=== PATIENT | female | born 1960 | race Caucasian/White ===

== ENCOUNTER 2020-11-25 18:35 | Emergency (ER) | payer OTHER ==
[~2020-11-25] VITALS: Wt 74.8 kg
[~2020-11-25 18:35] MED LIST: ATIVAN2 M1 PO; LEXAPRO5 M1 PO; LISINOPRIL AND1 TA2 PO; LOPRESSOR100 M1 PO; PERCOCET 325 MG1 TAB PO; SIMVASTATIN40 MG PO
[2020-11-25 18:58] LABS: BASO # 0.1 10*3/uL (0.0-0.1); BASO % 0.7 % (0.0-1.0); EOS # 0.3 10*3/uL (0.0-0.4); EOS % 3.3 % (1.0-4.0); HEMATOCRIT 40.3 % (37.0-47.0); LYMPH # 1.9 10*3/uL (1.3-4.4); LYMPH % 24.5 % (27.0-41.0); MEAN CELL VOLUME 86.7 fl (81.0-99.0); MEAN CORPUSCULAR HGB CONC 32.3 g/dl (33.0-37.0); MEAN PLATELET VOLUME 9.4 fl (9.6-12.3); MONO # 0.7 10*3/uL (0.1-1.0); MONO % 9.8 % (3.0-9.0); NEUT # 4.6 10*3/uL (2.3-7.9); NEUT % 61.4 % (47.0-73.0); PLATELET COUNT AUTOMATED 358 10*3/uL (130-400); RED BLOOD COUNT 4.65 10*6/uL (4.10-5.10); RED CELL DISTRI WIDTH 15.8 % (0-14.5); WHITE BLOOD COUNT 7.5 10*3/uL (4.8-10.8)
[2020-11-25 19:09] LABS: ACT PARTIAL THROMBO TIME 29.4 SECONDS (20.0-32.1); INTERNATIONAL NORM RATIO 1.1 (2.0-3.5)
[2020-11-25 19:13] LABS: ALBUMIN 3.7 gm/dl (3.1-4.5); ALKALINE PHOSPHATASE 70 U/L (45-117); BUN 9 mg/dl (7-24); CHLORIDE 104 mmol/L (98-107); CREATININE 0.68 mg/dL (0.55-1.02); POTASSIUM 3.3 mmol/L (3.5-5.1); SGOT/AST 33 IU/L (3-35); SGPT/ALT 32 U/L (12-78); SODIUM 139 mmol/L (136-145); TOTAL PROTEIN 7.7 gm/dL (6.4-8.2)
[2020-11-25 19:16] LABS: ETHYL ALCOHOL < 3.0 mg/dl (<3)
[2020-11-25 19:32] LABS: CPK 313 U/L (26-192); TROPONIN I < 0.015 ng/ml (<0.045)
[2020-11-25 21:09] LABS: BILIRUBIN Negative (Negative); BLOOD Trace-Lysed (Negative); CLARITY Clear (Clear); COLOR Yellow (Yellow); GLUCOSE Negative (Negative); KETONE Negative (Negative); LEUKO ESTERASE Trace (Negative); NITRITE Negative (Negative); SPECIFIC GRAVITY <= 1.005 (1.001-1.030); UROBILINOGEN 0.2 E.U./dl (0.0-1.0)
[2020-11-25 21:19] LABS: BACTERIA TRACE
[2020-11-25 21:22] LABS: URINE AMPHETAMINES > 1000 (1000ng/ml); URINE BARBITURATES < 200 (200ng/ml); URINE BENZODIAZEPINES < 200 (200ng/ml); URINE CANNABINOIDS (THC) < 50 (50ng/ml); URINE COCAINE < 300 (300ng/ml); URINE METHADONE < 300 (300ng/ml); URINE OPIATES < 300 (300ng/ml)
[2020-11-25 21:29] LABS: URINE PHENCYCLIDINE < 25 (25ng/ml)
== END 2020-11-26 02:43 | disposition home health service (06) ==
LOC: ED 18:35
PROVIDERS: Emergency Medicine
DX: F29 Unspecified psychosis not due to a substance or known physiological condition (principal); F45.8 Other somatoform disorders; F22 Delusional disorders; F15.10 Other stimulant abuse, uncomplicated; E87.6 Hypokalemia; Z79.899 Other long term (current) drug therapy; Z90.49 Acquired absence of other specified parts of digestive tract; Z20.828 Contact with and (suspected) exposure to other viral communicable diseases

== ENCOUNTER 2021-07-22 11:19 | Inpatient (IN) | payer OTHER ==
[~2021-07-22] VITALS: Ht 162.5 cm; Wt 52.2 kg
[2021-07-22 11:30] VITALS: BP 141/84
[2021-07-22 13:52] LABS: BASO # 0.1 10*3/uL (0.0-0.1); BASO % 0.8 % (0.0-1.0); EOS # 0.4 10*3/uL (0.0-0.4); HEMATOCRIT 40.2 % (37.0-47.0); LYMPH # 2.7 10*3/uL (1.3-4.4); LYMPH % 38.1 % (27.0-41.0); MEAN CELL VOLUME 89.3 fl (81.0-99.0); MEAN CORPUSCULAR HGB 29.3 pg (27.0-31.0); MEAN CORPUSCULAR HGB CONC 32.8 g/dl (33.0-37.0); MEAN PLATELET VOLUME 9.2 fl (9.6-12.3); MONO # 0.7 10*3/uL (0.1-1.0); MONO % 10.2 % (3.0-9.0); NEUT # 3.3 10*3/uL (2.3-7.9); NEUT % 45.5 % (47.0-73.0); PLATELET COUNT AUTOMATED 344 10*3/uL (130-400); RED CELL DISTRI WIDTH 13.7 % (0-14.5); WHITE BLOOD COUNT 7.2 10*3/uL (4.8-10.8)
[2021-07-22 14:07] LABS: ALBUMIN 3.7 gm/dl (3.1-4.5); ALKALINE PHOSPHATASE 86 U/L (45-117); BUN 16 mg/dl (7-24); CHLORIDE 105 mmol/L (98-107); CREATININE 0.67 mg/dL (0.55-1.02); POTASSIUM 3.8 mmol/L (3.5-5.1); SGOT/AST 21 IU/L (3-35); SGPT/ALT 29 U/L (12-78); SODIUM 138 mmol/L (136-145); TOTAL PROTEIN 7.8 gm/dL (6.4-8.2)
[2021-07-22 14:11] LABS: ETHYL ALCOHOL < 3.0 mg/dl (<3)
[2021-07-22 16:02] LABS: BILIRUBIN Negative (Negative); BLOOD Negative (Negative); CLARITY Clear (Clear); COLOR Yellow (Yellow); GLUCOSE Negative (Negative); KETONE Negative (Negative); LEUKO ESTERASE 2+ (Negative); NITRITE Negative (Negative); PH 7.5 (4.5-8.0); SPECIFIC GRAVITY <= 1.005 (1.001-1.030); UROBILINOGEN 0.2 E.U./dl (0.0-1.0)
[2021-07-22 16:15] LABS: RBC 0-2 rbc/hpf (0-2)
[2021-07-22 16:16] LABS: BACTERIA 1+
[2021-07-22 16:16] LABS: URINE AMPHETAMINES > 1000 (1000ng/ml); URINE BARBITURATES < 200 (200ng/ml); URINE BENZODIAZEPINES < 200 (200ng/ml); URINE CANNABINOIDS (THC) > 50 (50ng/ml); URINE COCAINE < 300 (300ng/ml); URINE METHADONE < 300 (300ng/ml); URINE OPIATES > 300 (300ng/ml)
[2021-07-22 16:18] LABS: URINE PHENCYCLIDINE < 25 (25ng/ml)
[2021-07-22 19:30] VITALS: BP 143/89
[2021-07-22] MEDS ORDERED: COLESTIPOL HYDRO1 GM PO (22:03)
[2021-07-22] MEDS ORDERED: HYDROXYZINE PAM25 M1 PO (22:03)
[2021-07-22] MEDS ORDERED: FAMOTIDINE20 M1 PO (22:04)
[2021-07-22] MEDS ORDERED: PANTOPRAZOLE SO40 MG PO (22:05)
[2021-07-22] MEDS ORDERED: OLANZAPINE7.5 M1 PO (22:10)
[2021-07-23 13:30] VITALS: BP 152/91
[2021-07-23 15:12] VITALS: BP 128/74
[2021-07-23 20:00] VITALS: BP 138/98
[2021-07-24 06:27] LABS: BASO % 0.5 % (0.0-1.0); EOS # 0.2 10*3/uL (0.0-0.4); EOS % 2.4 % (1.0-4.0); HEMATOCRIT 41.5 % (37.0-47.0); LYMPH # 2.4 10*3/uL (1.3-4.4); LYMPH % 29.2 % (27.0-41.0); MEAN CELL VOLUME 87.7 fl (81.0-99.0); MEAN PLATELET VOLUME 9.3 fl (9.6-12.3); MONO # 0.8 10*3/uL (0.1-1.0); MONO % 9.3 % (3.0-9.0); NEUT # 4.9 10*3/uL (2.3-7.9); NEUT % 58.4 % (47.0-73.0); PLATELET COUNT AUTOMATED 359 10*3/uL (130-400); RED BLOOD COUNT 4.73 10*6/uL (4.10-5.10); RED CELL DISTRI WIDTH 13.5 % (0-14.5); WHITE BLOOD COUNT 8.4 10*3/uL (4.8-10.8)
[2021-07-24 06:46] LABS: THYROID STIM HORMONE (HS) 2.84 uIU/ml (0.358-4.75)
[2021-07-24 07:32] VITALS: BP 131/87
[2021-07-24 08:38] LABS: VITAMIN D, 25-HYDROXY 33.6 ng/mL (30-100)
[2021-07-24] MEDS ORDERED: ATIVAN1 MG PO (10:14)
[2021-07-24] MEDS ORDERED: METOPROLOL25 MG PO (10:37)
[2021-07-24] MEDS ORDERED: NEURONTIN300 MG PO (10:40)
[2021-07-24] MEDS ORDERED: POTASSIUM CHLO10 ME4 PO (10:40)
[2021-07-24] MEDS ORDERED: PROTONIX40 MG PO (10:41)
[2021-07-24] MEDS ORDERED: CARAFATE1 G1 PO (10:41)
[2021-07-24] MEDS ORDERED: NORVASC5 MG PO (10:42)
[2021-07-24 19:53] VITALS: BP 118/83
[2021-07-25 07:45] VITALS: BP 138/84
[2021-07-25] MEDS ORDERED: PROVENTIL HFA6.7 GM IH (11:42)
[2021-07-25 20:00] VITALS: BP 133/74
[2021-07-26] MEDS ORDERED: MIRTAZAPINE15 M2 PO (06:18)
[2021-07-26] MEDS ORDERED: PALIPERIDONE ER6 MG PO (06:21)
[2021-07-26 07:51] VITALS: BP 139/84
== END 2021-07-26 12:30 | disposition home or self-care (01) | DRG 885 ==
LOC: ED 11:19 → 3N 07-23 12:48
PROVIDERS: Emergency Medicine; ADMIT Psychiatry & Neurology Psychiatry; ATTEND Psychiatry & Neurology Psychiatry
DX: F23 Brief psychotic disorder (principal); F15.20 Other stimulant dependence, uncomplicated; F41.9 Anxiety disorder, unspecified; Z20.822 Contact with and (suspected) exposure to COVID-19; F31.9 Bipolar disorder, unspecified; F11.10 Opioid abuse, uncomplicated; F12.10 Cannabis abuse, uncomplicated; E78.5 Hyperlipidemia, unspecified; Z90.49 Acquired absence of other specified parts of digestive tract; Z98.891 History of uterine scar from previous surgery; Z82.49 Family history of ischemic heart disease and other diseases of the circulatory system; Z79.899 Other long term (current) drug therapy

== ENCOUNTER 2025-10-04 16:28 | Inpatient (IN) | payer OTHER ==
[~2025-10-04] VITALS: Ht 157.5 cm; Wt 60.1 kg
[~2025-10-04 16:28] MED LIST changes: +ATIVAN1 MG PO; +CARAFATE1 G1 PO; +COLESTIPOL HYDRO1 GM PO; +FAMOTIDINE20 M1 PO; +HYDROXYZINE PAM25 M1 PO; +METOPROLOL25 MG PO; +MIRTAZAPINE15 M2 PO; +NEURONTIN300 MG PO; +NORVASC5 MG PO; +OLANZAPINE7.5 M1 PO; +PALIPERIDONE ER6 MG PO; +PANTOPRAZOLE SO40 MG PO; +POTASSIUM CHLO10 ME4 PO; +PROTONIX40 MG PO; +PROVENTIL HFA6.7 GM IH
[2025-10-04 16:53] LABS: MANUAL DIFF REFLEX YES; MEAN CELL VOLUME 85.6 fl (81.0-99.0); MEAN CORPUSCULAR HGB 29.2 pg (27.0-31.0); MEAN PLATELET VOLUME 9.3 fl (9.6-12.3); NUCLEATED RED BLOOD CELL 0.0 % (0.0-0.0); NUCLEATED RED BLOOD CELL 0.0 10*3/uL (0.0-0.0); PLATELET COUNT AUTOMATED 387 10*3/uL (130-400); RED CELL DISTRI WIDTH 15.4 % (0-14.5)
[2025-10-04 16:57] VITALS: BP 152/85
[2025-10-04 17:14] LABS: PLATELET SUFFICIENCY NORMAL (NORMAL)
[2025-10-04] MEDS ORDERED: SODIUM CHLORIDE 0.9% 500 ML IV ONE (17:15)
[2025-10-04] MEDS ORDERED: IOHEXOL 350 MG/ML 100 ML VIAL IV ONE (17:15)
[2025-10-04] MEDS ORDERED: SODIUM CHLORIDE 0.9% 100 ML BAG IV ONE (17:15)
[2025-10-04 17:18] LABS: BUN 18 mg/dl (9-23); SGPT/ALT 14 U/L (5-49)
[2025-10-04] MEDS ORDERED: OXYCODONE HCL5 MG PO (18:08)
[2025-10-04] MEDS ORDERED: MONTELUKAST SOD10 MG PO (18:08)
[2025-10-04] MEDS ORDERED: HYDROXYZINE HCL25 MG PO (18:09)
[2025-10-04] MEDS ORDERED: DICYCLOMINE HYD10 MG PO (18:10)
[2025-10-04] MEDS ORDERED: CYCLOBENZAPRINE10 MG PO (18:10)
[2025-10-04] MEDS ORDERED: HEARTBURN RELIE20 MG PO (18:11)
[2025-10-04] MEDS ORDERED: CETIRIZINE10 MG PO (18:11)
[2025-10-04] MEDS ORDERED: OMEPRAZOLE40 MG PO (18:12)
[2025-10-04] MEDS ORDERED: LYRICA150 M1 PO (18:12)
[2025-10-04] MEDS ORDERED: Acetaminophen/Hydrocodone 5 MG/325 MG TABLET PO PRN (20:00)
[2025-10-04] MEDS ORDERED: BISACODYL 5 MG TAB PO PRN (20:00)
[2025-10-04] MEDS ORDERED: ACETAMINOPHEN 325 MG TAB PO PRN (20:00)
[2025-10-04] MEDS ORDERED: Ondansetron Hydrochloride 4 MG/2 ML VIAL IV PRN (20:00)
[2025-10-04] MEDS ORDERED: Albuterol Sulf/Ipratropium 3 ML VIAL NEB PRN (20:10)
[2025-10-04 20:13] VITALS: BP 140/79
[2025-10-04] MEDS ORDERED: Potassium Bicarbonate/Potass 25 MEQ TAB PO ONE (20:15)
[2025-10-04] MEDS ORDERED: SODIUM CHLORIDE 0.9% 1,000 ML IV SCH (20:20)
[2025-10-04 20:55] VITALS: BP 154/84
[2025-10-04] MEDS ORDERED: Vancomycin Hydrochloride 1,000 MG in SODIUM CHLORIDE 0.9% 250 ML IV SCH (21:00)
[2025-10-04] MEDS ORDERED: GUAIFENESIN 600 MG TAB ER PO SCH (22:00)
[2025-10-05] VITALS: BP 156/85
[2025-10-05 00:48] LABS: BILIRUBIN Negative (Negative); BLOOD Negative (Negative); CLARITY Clear (Clear); COLOR Yellow (Yellow); KETONE 2+ (Negative); LEUKO ESTERASE Trace (Negative); NITRITE Negative (Negative); PH 5.5 (4.5-8.0); SPECIFIC GRAVITY 1.010 (1.001-1.030); UROBILINOGEN 0.2 E.U./dl (0.0-1.0)
[2025-10-05] MEDS ORDERED: LORazepam 1 MG TAB PO ONE (00:50)
[2025-10-05 00:53] LABS: URINE AMPHETAMINES Negative (1000ng/ml); URINE BARBITURATES Negative (200ng/ml); URINE BENZODIAZEPINES Negative (200ng/ml); URINE CANNABINOIDS (THC) Negative (50ng/ml); URINE COCAINE Negative (300ng/ml); URINE METHADONE Negative (300ng/ml); URINE OPIATES Negative (300ng/ml); URINE PHENCYCLIDINE Negative (25ng/ml)
[2025-10-05] MEDS ORDERED: Dicyclomine Hydrochloride 10 MG CAP PO PRN (05:25)
[2025-10-05 06:06] LABS: BASO # 0.0 10*3/uL (0.0-0.1); BASO % 0.1 % (0.0-1.0); EOS # 0.0 10*3/uL (0.0-0.4); EOS % 0.0 % (1.0-4.0); MEAN CELL VOLUME 85.7 fl (81.0-99.0); MEAN CORPUSCULAR HGB 28.6 pg (27.0-31.0); MEAN PLATELET VOLUME 9.3 fl (9.6-12.3); MONO # 0.8 10*3/uL (0.1-1.0); MONO % 5.7 % (3.0-9.0); NEUT # 12.8 10*3/uL (2.3-7.9); NEUT % 88.3 % (47.0-73.0); NUCLEATED RED BLOOD CELL 0.0 % (0.0-0.0); NUCLEATED RED BLOOD CELL 0.0 10*3/uL (0.0-0.0); PLATELET COUNT AUTOMATED 408 10*3/uL (130-400); RED CELL DISTRI WIDTH 15.7 % (0-14.5)
[2025-10-05 06:18] LABS: ACT PARTIAL THROMBO TIME 29.6 SECONDS (20.0-32.1)
[2025-10-05 06:41] LABS: BUN 11 mg/dl (9-23); FREE T4 1.18 ng/dl (0.89-1.76); LDL CHOLESTEROL 90 mg/dL (9-159); SGPT/ALT 17 U/L (5-49)
[2025-10-05 07:34] LABS: VITAMIN D, 25-HYDROXY 20.8 ng/mL (30-100)
[2025-10-05] MEDS ORDERED: POTASSIUM CHLORIDE 20 MEQ TAB PO ONE (07:35)
[2025-10-05 08:00] VITALS: BP 128/75
[2025-10-05] MEDS ORDERED: SUCRALFATE 1 GM TAB PO SCH (10:00)
[2025-10-05] MEDS ORDERED: PREGABALIN 75 MG CAP PO SCH (10:00)
[2025-10-05] MEDS ORDERED: Cyclobenzaprine Hydrochlorid 10 MG TAB PO SCH (10:00)
[2025-10-05] MEDS ORDERED: POTASSIUM CHLORIDE 10 MEQ TAB PO SCH ×2 (10:00→18:00)
[2025-10-05] MEDS ORDERED: GABAPENTIN 300 MG CAP PO SCH (10:00)
[2025-10-05 11:29] VITALS: BP 131/71
[2025-10-05 16:00] VITALS: BP 116/90
[2025-10-05 20:00] VITALS: BP 137/85
[2025-10-05] MEDS ORDERED: Cyclobenzaprine Hydrochlorid 10 MG TAB PO PRN (20:14)
[2025-10-05] MEDS ORDERED: HYDROCODONE-AC1 EAC1 PO (20:17)
[2025-10-05] MEDS ORDERED: PREGABALIN150 MG PO (20:21)
[2025-10-05] MEDS ORDERED: VARENICLINE TART1 MG PO (20:22)
[2025-10-05] MEDS ORDERED: Paliperidone 3 MG TER PO SCH (21:00)
[2025-10-05] MEDS ORDERED: Colestipol Hydrochloride 1 GM TAB PO SCH (21:00)
[2025-10-05] MEDS ORDERED: Mirtazapine 15 MG TAB PO SCH (21:00)
[2025-10-05] MEDS ORDERED: SIMVASTATIN 20 MG TAB PO SCH (22:00)
[2025-10-05] MEDS ORDERED: AMLODIPINE BESYL5 MG PO (23:21)
[2025-10-05] MEDS ORDERED: Ventolin 02.5 MG/3 M INH (23:21)
[2025-10-05] MEDS ORDERED: GABAPENTIN600 MG PO (23:22)
[2025-10-05] MEDS ORDERED: Lopressor25 MG PO (23:33)
[2025-10-05] MEDS ORDERED: Carafate1 GM PO (23:34)
[2025-10-05] MEDS ORDERED: POTASSIUM CHLO10 ME5 PO (23:35)
[2025-10-05] MEDS ORDERED: PANTOPRAZOLE SO40 MG PO (23:35)
[2025-10-05] MEDS ORDERED: CETIRIZINE HYDR10 MG PO (23:35)
[2025-10-06] VITALS: BP 135/79
[2025-10-06] MEDS ORDERED: Dicyclomine Hydrochloride 10 MG CAP PO PRN (00:07)
[2025-10-06] MEDS ORDERED: CALCIUM (TUMS) 500MG PO ONE (00:35)
[2025-10-06] MEDS ORDERED: LORazepam 1 MG TAB PO ONE (04:20)
[2025-10-06 08:00] VITALS: BP 115/97
[2025-10-06 08:57] LABS: BASO # 0.0 10*3/uL (0.0-0.1); BASO % 0.2 % (0.0-1.0); EOS # 0.1 10*3/uL (0.0-0.4); EOS % 0.4 % (1.0-4.0); MEAN CELL VOLUME 86.4 fl (81.0-99.0); MEAN CORPUSCULAR HGB 29.0 pg (27.0-31.0); MEAN PLATELET VOLUME 9.5 fl (9.6-12.3); MONO # 1.3 10*3/uL (0.1-1.0); MONO % 6.7 % (3.0-9.0); NEUT # 15.2 10*3/uL (2.3-7.9); NEUT % 80.8 % (47.0-73.0); NUCLEATED RED BLOOD CELL 0.0 % (0.0-0.0); NUCLEATED RED BLOOD CELL 0.0 10*3/uL (0.0-0.0); PLATELET COUNT AUTOMATED 475 10*3/uL (130-400); RED CELL DISTRI WIDTH 16.3 % (0-14.5)
[2025-10-06 09:31] LABS: SGPT/ALT 35 U/L (5-49)
[2025-10-06 09:42] LABS: BUN 26 mg/dl (9-23)
[2025-10-06] MEDS ORDERED: GABAPENTIN 300 MG CAP PO SCH (10:00)
[2025-10-06] MEDS ORDERED: Cholecalciferol 2,000 UNIT TABLET (50 MCG) PO SCH (10:00)
[2025-10-06] MEDS ORDERED: Colestipol Hydrochloride 1 GM TAB PO SCH (10:00)
[2025-10-06] MEDS ORDERED: POTASSIUM CHLORIDE 20 MEQ TAB PO ONE (11:05)
[2025-10-06] MEDS ORDERED: Cyclobenzaprine Hydrochlorid 10 MG TAB PO PRN (11:40)
[2025-10-06 12:00] VITALS: BP 135/73
[2025-10-06] MEDS ORDERED: AZITHROMYCIN 500 MG in SODIUM CHLORIDE 0.9% 250 ML IV SCH (13:00)
[2025-10-06] MEDS ORDERED: diazePAM 10 MG/2 ML SYR IV ONE (13:40)
[2025-10-06 14:07] LABS: MYCOPLASMA PNEUMONIAE IGG 126 U/mL (0-99); MYCOPLASMA PNEUMONIAE IGM <770 U/mL (0-769)
[2025-10-06 16:00] VITALS: BP 145/60
[2025-10-06] MEDS ORDERED: Albuterol Sulf/Ipratropium 3 ML VIAL NEB SCH (16:16)
[2025-10-06] MEDS ORDERED: SUCRALFATE 1 GM TAB PO SCH (16:30)
[2025-10-06 20:00] VITALS: BP 139/100
[2025-10-06] MEDS ORDERED: Paliperidone 3 MG TER PO SCH (21:00)
[2025-10-06] MEDS ORDERED: Dicyclomine Hydrochloride 10 MG CAP PO SCH (22:00)
[2025-10-06] MEDS ORDERED: GABAPENTIN 600 MG TAB PO SCH (22:00)
[2025-10-07] VITALS: BP 140/105
[2025-10-07 06:15] LABS: BASO # 0.0 10*3/uL (0.0-0.1); BASO % 0.1 % (0.0-1.0); EOS # 0.5 10*3/uL (0.0-0.4); EOS % 3.6 % (1.0-4.0); MEAN CELL VOLUME 86.5 fl (81.0-99.0); MEAN CORPUSCULAR HGB 28.6 pg (27.0-31.0); MEAN PLATELET VOLUME 9.3 fl (9.6-12.3); MONO # 0.8 10*3/uL (0.1-1.0); MONO % 6.1 % (3.0-9.0); NEUT # 9.1 10*3/uL (2.3-7.9); NEUT % 69.3 % (47.0-73.0); NUCLEATED RED BLOOD CELL 0.0 % (0.0-0.0); NUCLEATED RED BLOOD CELL 0.0 10*3/uL (0.0-0.0); PLATELET COUNT AUTOMATED 459 10*3/uL (130-400); RED CELL DISTRI WIDTH 16.6 % (0-14.5)
[2025-10-07 06:48] LABS: BUN 13 mg/dl (9-23)
[2025-10-07] MEDS ORDERED: POTASSIUM CHLORIDE 20 MEQ TAB PO ONE (07:10)
[2025-10-07 08:00] VITALS: BP 151/81
[2025-10-07] MEDS ORDERED: FAMOTIDINE 20 MG TAB PO SCH (10:00)
[2025-10-07] MEDS ORDERED: Colestipol Hydrochloride 1 GM TAB PO SCH (10:00)
[2025-10-07 12:00] VITALS: BP 156/79
[2025-10-07] MEDS ORDERED: POTASSIUM CHLORIDE 20 MEQ TAB PO SCH (12:00)
[2025-10-07] MEDS ORDERED: diazePAM 10 MG/2 ML SYR IV PRN (12:50)
[2025-10-07] MEDS ORDERED: AZITHROMYCIN 500 MG in SODIUM CHLORIDE 0.9% 250 ML IV SCH (13:00)
[2025-10-07 16:00] VITALS: BP 152/89
[2025-10-07 20:00] VITALS: BP 134/83
[2025-10-07] MEDS ORDERED: Paliperidone 6 MG TER PO SCH (22:00)
[2025-10-08] VITALS: BP 143/83
[2025-10-08] MEDS ORDERED: GABAPENTIN 800 MG TAB PO SCH (06:00)
[2025-10-08 08:00] VITALS: BP 157/92
[2025-10-08] MEDS ORDERED: METOPROLOL SUCCINATE XR 25 MG TAB PO SCH (10:00)
[2025-10-08] MEDS ORDERED: Cholecalciferol 5,000 IU CAP (125 MCG) PO SCH (10:00)
[2025-10-08 12:00] VITALS: BP 101/68
[2025-10-08] MEDS ORDERED: AZITHROMYCIN 250 ML IV SCH (13:00)
[2025-10-08] MEDS ORDERED: GABAPENTIN800 MG PO (13:30)
[2025-10-08] MEDS ORDERED: PALIPERIDONE ER6 MG PO (13:30)
[2025-10-08] MEDS ORDERED: DOXYCYCLINE HY100 M3 PO (13:30)
[2025-10-08] MEDS ORDERED: VITAMIN D3125 MC1 PO (13:30)
[2025-10-08] MEDS ORDERED: METOPROLOL SUCC25 M2 PO (13:30)
[2025-10-10] MEDS ORDERED: RISPERDAL1 M1 PO (09:36)
[2025-10-10] MEDS ORDERED: RISPERIDONE0.5 MG PO (09:36)
[2025-10-10] MEDS ORDERED: MIRTAZAPINE15 M2 PO (09:36)
== END 2025-10-08 16:05 | DRG 871 ==
LOC: ED 16:28 → 5E 18:55 → EDHOLD 18:55 → 5E 19:56
PROVIDERS: Student in an Organized Health Care Education/Training Program; ADMIT Internal Medicine; ATTEND Internal Medicine
DX: A41.9 Sepsis, unspecified organism (principal); E43 Unspecified severe protein-calorie malnutrition; G93.41 Metabolic encephalopathy; J96.01 Acute respiratory failure with hypoxia; J69.0 Pneumonitis due to inhalation of food and vomit; K58.9 Irritable bowel syndrome, unspecified; R65.20 Severe sepsis without septic shock; F41.9 Anxiety disorder, unspecified; E87.6 Hypokalemia; Z20.822 Contact with and (suspected) exposure to COVID-19; F17.210 Nicotine dependence, cigarettes, uncomplicated; F31.9 Bipolar disorder, unspecified; J45.909 Unspecified asthma, uncomplicated; K21.9 Gastro-esophageal reflux disease without esophagitis; E78.5 Hyperlipidemia, unspecified; I10 Essential (primary) hypertension; M85.88 Other specified disorders of bone density and structure, other site; F22 Delusional disorders; D64.9 Anemia, unspecified; E55.9 Vitamin D deficiency, unspecified; G62.9 Polyneuropathy, unspecified; Z79.899 Other long term (current) drug therapy; Z79.01 Long term (current) use of anticoagulants; Z82.49 Family history of ischemic heart disease and other diseases of the circulatory system; Z80.8 Family history of malignant neoplasm of other organs or systems; Z79.2 Long term (current) use of antibiotics; Z98.891 History of uterine scar from previous surgery; Z90.49 Acquired absence of other specified parts of digestive tract; Z68.20 Body mass index [BMI] 20.0-20.9, adult